=== PATIENT | male | born 1995 | race Caucasian/White ===

== ENCOUNTER → 2019-09-02 12:56 | Outpatient (CLI) | payer OTHER, SELFPAY | PROVIDERS: Visit Provider Physician Assistant | DX: L02.91 Cutaneous abscess, unspecified (principal) | CPT/HCPCS: 87070; 87077; 87205 ==

== ENCOUNTER 2020-06-13 19:34 | Emergency (ER) | payer OTHER, SELFPAY ==
[2020-06-13] VITALS (7 sets, daily range): BP systolic 119–135; BP diastolic 56–75; PULSE 88–108; RESP 16–20; TEMP 36.7–38.6; O2SAT 97–99
--- NOTE | 2020-06-13 19:48 | DI.RAD.S_ITS ---
PROCEDURE: XR CHEST 1V INDICATIONS: suspected sepsis TECHNIQUE: One view of the chest was acquired. COMPARISON: None. FINDINGS: Surgical changes and devices: None. Lungs and pleura: Lungs are clear. No pleural effusions or pneumothorax. Mediastinum: Mediastinal contours appear normal. Heart size is normal. Bones and chest wall: No suspicious bony lesions. Overlying soft tissues appear unremarkable. IMPRESSION: No acute pulmonary process. Dictated by: Sherley Campbell M.D. on 06/13/2020 at 20:59 Approved by: Sherley Campbell M.D. on 06/13/2020 at 20:59
[2020-06-13 20:18] LABS: Add Manual Diff / Slide Review NO; Basophils Absolute Auto 100 /uL (0-100); Basophils Percent Auto 0.4 % (0-2); Eosinophils Absolute Auto 100 /uL (0-450); Eosinophils Percent Auto 0.4 % (2-4); Hematocrit 46.8 % (41-53); Lymphocytes Absolute Auto 1100 /uL (1100-4500); Lymphocytes Percent Auto 7.5 % (25-40); Mean Corpuscular HGB Conc 34.2 % (30-36); Mean Corpuscular Hemoglobin 30.6 PG (26-34); Mean Corpuscular Volume 89.6 fL (80-100); Monocytes Absolute Auto 1200 /uL (0-900); Monocytes Percent Auto 7.9 % (3-14); Neutrophils Absolute Auto 12700 /uL (1500-7000); Neutrophils Percent Auto 83.8 % (50-75); Platelet Count 220 X10^3/uL (150-400); Red Blood Cell Count 5.22 X10^6/uL (4.5-5.9); Red Cell Distribution Width 13.6 % (11.6-14.8); White Blood Cell Count 15.1 X10^3/uL (4.5-11.0)
[2020-06-13] MEDS: ACETAMINOPHEN 325 MG TABLET 975 MG PO (20:23)
[2020-06-13] MEDS: SODIUM CHLORIDE 0.9% 1,000 ML 1000 ML IV (20:24)
[2020-06-13] MEDS: IBUPROFEN 400 MG TABLET 800 MG PO (20:24)
[2020-06-13 20:27] LABS: INR 1.3 (0.9-1.3); Prothrombin Time 15.1 SECONDS (10.1-12.7)
[2020-06-13 20:29] LABS: PTT Partial Thromboplastin Tim 33 SECONDS (26.4-36.2)
[2020-06-13 20:37] LABS: Alanine Aminotransferase 43 IU/L (<50); Albumin 4.7 g/dL (3.5-5.0); Albumin Globulin Ratio 1.7 (1.0-2.8); Alkaline Phosphatase 73 U/L (38-126); Aspartate Aminotransferase 40 IU/L (17-59); BUN Creatinine Ratio 14.6 (6-22); Bilirubin Total 0.6 mg/dL (0.2-1.3); Blood Urea Nitrogen 15 mg/dL (9-20); Calcium 9.5 mg/dL (8.4-10.2); Carbon Dioxide 27 mmol/L (22-32); Chloride 97 mmol/L (98-107); Estimated Glomerular Filt Rate > 60.0 mL/min (>60); Globulin 2.7 g/dL (1.7-4.1); Glucose 93 mg/dL (70-100); HEMOLYSIS 19 (0-50); Lactate (Lactic Acid) 0.8 mmol/L (0.7-2.1); Lipase 54 U/L (23-300); Potassium 3.7 mmol/L (3.4-5.1); Sodium 135 mmol/L (137-145); Total Protein 7.4 g/dL (6.3-8.2)
[2020-06-13 20:57] LABS: Procalcitonin < 0.05 ng/mL (<0.5)
--- NOTE | 2020-06-13 21:34 | ED_ITS ---
HPI - Fever General Chief Complaint: Fever Stated Complaint: Sore Throat,Fever,Body Aches,SOB Time Seen by Provider: 06/13/20 19:40 Source: patient Mode of arrival: Ambulatory Limitations: no limitations History of Present Illness HPI Narrative: 24-year-old male nonsmoker with noncontributory medical history presents with a day or to of sore throat with difficulty swallowing, fever, shaking chills, body aches. He denies headache, runny nose. Denies any chest pain or shortness of breath. He denies any abdominal pain nor nausea or vomiting. He has no dysuria, frequency or urgency. He denies any diarrhea. 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 and is constantly in contact with persons that would be considered high risk for COVID-19 Related Data Previous Rx's Medication Instructions Recorded mupirocin 2 % topical ointment 1 applic TOP BID #22 gram 09/02/19 Allergies Allergy/AdvReac Type Severity Reaction Status Date / Time No Known Drug Allergies Allergy Unverified 09/02/19 11:46 Review of Systems Constitutional Constitutional: Reports chills, Denies fatigue, Reports fever(s), Denies frequent falls, Denies lethargy and Denies weakness Eyes Eyes: Denies change in vision, Denies eye discharge, Denies irritation and Denies loss of vision ENT Ears, Nose, Mouth, and Throat: Denies change in voice, Denies dizziness, Denies neck pain, Reports sore throat and Denies throat swelling Cardiovascular Cardiovascular: Denies chest pain, Denies irregular heart rhythm, Denies lightheadedness, Denies palpitations, Denies dyspnea, Denies dyspnea on exertion and Denies orthopnea Respiratory Respiratory: Denies cough, Denies dyspnea, Denies dyspnea on exertion and Denies wheezing Gastrointestinal Gastrointestinal: Denies abdominal pain, Denies change in bowel habits, Denies diarrhea, Denies nausea and Denies vomiting Musculoskeletal Musculoskeletal: Denies neck pain and Denies numbness Integumentary/Breasts Skin/Breast: Denies pruritus, Denies erythema, Denies rash and Denies wounds Neurologic Neurologic: Denies behavioral changes, Denies confusion, Denies dizziness, Denies frequent falls, Denies loss of vision, Denies numbness and Denies w eakness Psychiatric Psychiatric: Denies anxiety, Denies behavioral changes, Denies confusion, Denies depression, Denies homicidal ideation and Denies suicidal ideation Endocrine Endocrine: Denies fatigue, Denies flushing and Denies palpitations Hematologic/Lymphatic Hematologic/Lymphatic: Denies easy bruising Allergic/Immunologic Allergic/Immunologic: Denies urticaria, Denies throat swelling and Denies wheezing Patient History Social History Smoking Status: Never smoker Smoking Status: Never smoker Exam Narrative Exam Narrative: GENERAL: [24] year old patient appears stated age. Well-n ourished, well-developed patient, in mild distress. HEAD: Atraumatic. Normocephalic. EYES: Pupils equal round and reactive. Extraocular motions intact. No scleral icterus. No injection or drainage. ENT: Nose without bleeding, purulent drainage. Posterior pharyngeal erythema with tonsillar swelling and exudate, no sign of abscess. NECK: Trachea midline. Non tender CARDIOVASCULAR: Regular rate and rhythm without murmurs, gallops, or rubs. RESPIRATORY: Clear to auscultation. Breath sounds equal bilaterally. No wheezes, rales, or rhonchi. GASTROINTESTINAL: Abdomen soft, non-tender, nondistended. EXTREMITIES: No edema or joint tenderness. BACK: Nontender without deformity or crepitance. No flank tenderness. NEURO: AOx3. SKIN: No rash or erythema of visible areas Initial Vital Signs Initial Vital Signs: Vital Signs Temperature 101.5 F H 06/13/20 19:44 Pulse Rate 108 H 06/13/20 19:44 Respiratory Rate 06/13/20 19:44 Blood Pressure 135/75 06/13/20 19:44 Pulse Oximetry 99 06/13/20 19:44 Course Orders Ordered: ED Orders 06/13/20 19:48 XR chest 1V Stat RT Consult Eval and Treat Now 06/13/20 20:09 Complete Blood Count AUTO DIFF Stat Comprehensive Metabolic Panel Stat Lactate (Lactic Acid) Stat Lipase Stat Partial Thromboplastin Time Stat Procalcitonin Stat Prothrombin Time INR Stat Throat Culture Stat 06/13/20 20:17 EKG-12 Lead Stat 06/13/20 20:30 Blood Culture Stat Discontinued Medications Acetaminophen (Tylenol) 975 mg PO NOW ONE Stop: 06/13/20 20:18 Last Admin: 06/13/20 20:23 Dose: 975 mg Documented by: DEB Sodium Chloride (Normal Saline 0.9%) 1,000 mls @ 1,000 mls/hr IV BOLUS ONE Stop: 06/13/20 20:47 Last Infusion: 06/13/20 21:31 Dose: 0 mls/hr Documented by: Admin: 06/13/20 20:24 Dose: 1,000 mls/hr Documented by: DEB Ibuprofen (Advil) 800 mg PO NOW ONE Stop: 06/13/20 20:18 Last Admin: 06/13/20 20:24 Dose: 800 mg Documented by: DEB Penicillin G Benzathine (Bicillin L-A) 1,200,000 unit IM NOW ONE Stop: 06/13/20 22:13 Last Admin: 06/13/20 22:27 Dose: 1,200,000 unit Documented by: GUSTAVO Vital Signs Vital signs: Vital Signs - 8 hr 06/13/20 19:44 06/13/20 20:16 06/13/20 20:23 Temperature 101.5 F H 101.4 F H Pulse Rate 108 H 101 H Respiratory Rate 20 Blood Pressure 135/75 Pulse Oximetry 99 97 06/13/20 20:24 06/13/20 20:30 06/13/20 21:31 Temperature 101.4 F H 99.0 F Pulse Rate 99 H Respiratory Rate Blood Pressure 123/59 L Pulse Oximetry 97 06/13/20 22:58 Temperature 98.1 F Pulse Rate 88 Respiratory Rate 16 Blood Pressure 119/56 L Pulse Oximetry 99 MDM - Fever Lab Data Result diagrams: 06/13/20 20:09 06/13/20 20:09 Labs: Lab Results 06/13/20 06/13/20 06/13/20 Range/Units 20:09 20:09 20:09 WBC 15.1 H (4.5-11.0) X10^3/uL RBC 5.22 (4.5-5.9) X10^6/uL Hgb 16.0 (13.5-17.5) g/dL Hct 46.8 (41-53) % MCV 89.6 (80-100) fL MCH 30.6 (26-34) PG MCHC 34.2 (30-36) % RDW 13.6 (11.6-14.8) % Plt Count 220 (150-400) X10^3/uL Neut % (Auto) 83.8 H (50-75) % Lymph % (Auto) 7.5 L (25-40) % Mcleod % (Auto) 7.9 (3-14) % Eos % (Auto) 0.4 L (2-4) % Baso % (Auto) 0.4 (0-2) % Neut # (Auto) 91180 H (1878-1568) /uL Lymph # (Auto) 1100 (8986-6817) /uL Mcleod # (Auto) 1200 H (0-900) /uL Eos # (Auto) 100 (0-450) /uL Baso # (Auto) 100 (0-100) /uL PT 15.1 H (10.1-12.7) SECONDS INR 1.3 (0.9-1.3) APTT 33 (26.4-36.2) SECONDS Sodium (137-145) mmol/L Potassium (3.4-5.1) mmol/L Chloride (98-107) mmol/L Carbon Dioxide (22-32) mmol/L BUN (9-20) mg/dL Creatinine (0.66-1.25) mg/dL Estimated GFR (>60) mL/min BUN/Creatinine Ratio (6-22) Glucose (70-100) mg/dL Lactate (0.7-2.1) mmol/L Calcium (8.4-10.2) mg/dL Total Bilirubin (0.2-1.3) mg/dL AST (17-59) IU/L ALT (<50) IU/L Alkaline Phosphatase (38-126) U/L Total Protein (6.3-8.2) g/dL Albumin (3.5-5.0) g/dL Globulin (1.7-4.1) g/dL Albumin/Globulin Ratio (1.0-2.8) Lipase (23-300) U/L Procalcitonin < 0.05 (<0.5) ng/mL COVID-19 PCR (Negative) 06/13/20 06/13/20 06/13/20 Range/Units 20:09 20:09 20:09 WBC (4.5-11.0) X10^3/uL RBC (4.5-5.9) X10^6/uL Hgb (13.5-17.5) g/dL Hct (41-53) % MCV (80-100) fL MCH (26-34) PG MCHC (30-36) % RDW (11.6-14.8) % Plt Count (150-400) X10^3/uL Neut % (Auto) (50-75) % Lymph % (Auto) (25-40) % Mcleod % (Auto) (3-14) % Eos % (Auto) (2-4) % Baso % (Auto) (0-2) % Neut # (Auto) (7021-1791) /uL Lymph # (Auto) (5060-0666) /uL Mcleod # (Auto) (0-900) /uL Eos # (Auto) (0-450) /uL Baso # (Auto) (0-100) /uL PT (10.1-12.7) SECONDS INR (0.9-1.3) APTT (26.4-36.2) SECONDS Sodium 135 L (137-145) mmol/L Potassium 3.7 (3.4-5.1) mmol/L Chloride 97 L (98-107) mmol/L Carbon Dioxide 27 (22-32) mmol/L BUN 15 (9-20) mg/dL Creatinine 1.03 (0.66-1.25) mg/dL Estimated GFR > 60.0 (>60) mL/min BUN/Creatinine Ratio 14.6 (6-22) Glucose 93 (70-100) mg/dL Lactate 0.8 (0.7-2.1) mmol/L Calcium 9.5 (8.4-10.2) mg/dL Total Bilirubin 0.6 (0.2-1.3) mg/dL AST 40 (17-59) IU/L ALT 43 (<50) IU/L Alkaline Phosphatase 73 (38-126) U/L Total Protein 7.4 (6.3-8.2) g/dL Albumin 4.7 (3.5-5.0) g/dL Globulin 2.7 (1.7-4.1) g/dL Albumin/Globulin Ratio 1.7 (1.0-2.8) Lipase 54 (23-300) U/L Procalcitonin (<0.5) ng/mL COVID-19 PCR Negative (Negative) Point of Care Testing Rapid Strep A Negative MDM Narrative Medical decision making narrative: Patient with fever, difficulty swallowing, tonsillar swelling, exudate, elevated white blood cell count. Rapid strep is negative, however given relatively isolated symptoms and the appearance consistent with strep patient has a high likelihood of a streptococcal pharyngitis other than group a beta-hemolytic strep which is tested by our rapid test. Furthermore, patient has a history of atypical streptococcal pharyngitis that did not show up on the rapid only to be called back after a positive throat culture a few days later. We did discuss this and after COVIDt swab came back negative we elected to treat here in the department rather than wait for the culture Discharge Plan Departure Patient Disposition: Home Clinical Impression: Pharyngitis, acute Qualifiers: Pharyngitis/tonsillitis etiology: unspecified etiology Qualified Code(s): J02.9 - Acute pharyngitis, unspecified Discharge Date/Time: 06/13/20 23:01 Instructions: DI for Strep Throat Activity Restrictions/Additional Instructions: *You have been diagnosed with [acute pharyngitis, suspect streptococcal] *What to do: *Take medications as directed *Follow up with your primary care provider in 2-3 days, call for an appointment. Let them know you were seen in the Emergency Department and that we ask that you be seen in follow up *Return to ER if you should have any new, worsening or concerning symptoms Prescriptions: No Action mupirocin 2 % ointment 1 applic TOP BID Qty: 22 RF: 0
[2020-06-13 21:41] LABS: COVID19 -Nasal RAPID Negative (Negative)
[2020-06-13] MEDS: PENICILLIN G BENZATHINE 1,200,000 UNIT/2 ML SYRINGE 1200000 UNIT IM (22:27)
== END 2020-06-13 23:01 | disposition home or self-care (01) ==
PROVIDERS: Emergency Provider Emergency Medicine
DX: J02.9 Acute pharyngitis, unspecified (principal); R50.9 Fever, unspecified; D72.829 Elevated white blood cell count, unspecified; Z03.818 Encounter for observation for suspected exposure to other biological agents ruled out
CPT/HCPCS: 36415; 71045; 80053; 83605; 83690; 84145; 85025; 85610; 85730; 87040; 87070; 87077; 87147; 87635; 87880; 93005; 96360; 96372; 99284; 99285; J0561

== ENCOUNTER 2020-12-19 11:20 | Emergency (ER) | payer OTHER, SELFPAY ==
[2020-12-19 11:29] VITALS: BP 153/71; PULSE 117; RESP 18; TEMP 37; O2SAT 100; BMI 31.4
[2020-12-19] MEDS: DEXAMETHASONE 10 MG/ML VIAL PO (11:58)
--- NOTE | 2020-12-19 12:33 | ED.URI ---
HPI - URI/Sore Throat <ANDREW Peace - Last Filed: 12/19/20 13:23> General Chief Complaint: Upper Respiratory Symptoms Stated Complaint: Sore throat 2 weeks,spitting blood Time Seen by Provider: 12/19/20 11:22 Source: patient Mode of arrival: Ambulatory Limitations: no limitations History of Present Illness HPI Narrative: This is a 24 year male, nonsmoker, past medical history significant for bipolar and frequent throat infection presents to ED with chief complain of 2 week duration of moderate sore throat. Patient today noticed metallic taste in the back of his throat and when he spit it out notice blood spots and concerned so came in to ED for an evaluation. Patient denies his on blood thinner. Patient denies chest pain, breathing difficulty, hemoptysis, known exposure to COVID, abdominal pain, nausea or vomiting, near syncope. He denies runny nose, nose bleed. 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 He has been taking Motrin to treat his discomfort and last Motrin taken about 5 hours ago. Patient reports pain as 2/10 at this time. He states drinks about a gallon of water daily and denies difficulty hydrating himself. Patient denies taking high dose of caffeine, feeling anxious, in significant pain. Related Data Previous Rx's Medication Instructions Recorded mupirocin 2 % topical ointment 1 applic TOP BID #22 gram 09/02/19 penicillin V potassium 500 mg PO BID 10 Days #20 tab 12/19/20 Allergies Allergy/AdvReac Type Severity Reaction Status Date / Time No Known Drug Allergies Allergy Unverified 09/02/19 11:46 Review of Systems <ANDREW Peace - Last Filed: 12/19/20 13:23> Review of Systems Narrative: General: See HPI HEENT: Denies sinus pain, ear pain, (+) sore throat, difficulty swallowing, dizziness. Respiratory: Denies dyspnea, cough, wheezing, hemoptysis, sputum. Cardiovascular: Denies chest pain, palpitations, orthopnea, edema. Gastrointestinal: Denies nausea, vomiting, abdominal pain, diarrhea, constipation, melena. : Denies dysuria, frequency, incontinence, hematuria, urinary retention. Musculoskeletal: Denies weakness, joint pain or bony pain. Skin: Denies rash, skin lesions, or other. Neurologic: Denies weakness, headache, numbness, change in speech, confusion, seizures, incoordination. Psychiatric: No concerning psychosocial issues. 12-point review of systems is negative except for those stated above. Patient History <ANDREW Peace - Last Filed: 12/19/20 13:23> Medical History Bipolar 1 disorder Social History Smoking Status: Never smoker Smoking Status: Never smoker Substance Use Type: marijuana Exam <[facility] WeaverP - Last Filed: 12/19/20 13:23> Narrative Exam Narrative: GEN: Alert, oriented x 3, well appearing and nourished, and in no acute distress. Head: Normal cephalic, atraumatic. No scalp or temporal tenderness, palpable mass or rash. EYES: Pupils are equal, round, and reactive to light and accommodation. Extraocular muscles are intact bilaterally. There is no subconjunctival hemorrhage, exudate and sclera non-icteric. ENT: Bilateral auditory canals and tympanic membranes clear. Hearing grossly intact. Nose without bleeding, purulent discharge or deviation. Facial sinuses nontender to palpate. Mucous membrane moist, no mucosal lesion. Throat with erythema, tonsillar hypertrophy and a few exudate. Uvula in midline, airway patent. Neck: Trachea in midline. No JVD, non-tender without lymphadenopathy. No masses or thyroid megaly. Supple, non-tender and no meningeal signs. CARDIAC: Normal regular rate and rhythm without murmurs, gallops, or rubs. No chest wall tenderness. No peripheral edema, cyanosis or pallor. Capillary refill is less than 2 seconds. RESPIRATORY: Lungs are clear to auscultate bilaterally. No cough, wheezes, rales, or rhonchi. No stridor, respiratory distress, increase work of breathing, or accessary muscle used. ABD: Abdomen soft, nontender and non-distended. No guarding or rebound tenderness to palpate. Bowel sounds are normal in all 4 quadrants. There is no palpable masses or organomegaly. EXT: Full painless ROM of all extremities with no loss of sensation, strength, effusion or edema. SKIN: Warm, dry, normal color for patient. No erythema, lesions or rash over visible areas. BACK: Nontender without deformity or crepitance. No flank tenderness. NEUROLOGICAL: Alert and oriented to place, time and person. Sensation and motor function intact bilaterally. No facial droops, dysphasia. PSYCHIATRIC: Good judgement and reason, without hallucinations, abnormal affect or abnormal behaviors during the examination. Patient is not suicidal. Initial Vital Signs Initial Vital Signs: Vital Signs Temperature 98.6 F 12/19/20 11:29 Pulse Rate 117 H 12/19/20 11:29 Respiratory Rate 18 12/19/20 11:29 Blood Pressure 153/71 H 12/19/20 11:29 Pulse Oximetry 100 12/19/20 11:29 <Daisy Crabtree DO - Last Filed: 12/19/20 19:48> Initial Vital Signs Initial Vital Signs: Vital Signs Temperature 98.6 F 12/19/20 11:29 Pulse Rate 117 H 12/19/20 11:29 Respiratory Rate 18 12/19/20 11:29 Blood Pressure 153/71 H 12/19/20 11:29 Pulse Oximetry 100 12/19/20 11:29 Scores <ANDREW Peace - Last Filed: 12/19/20 13:23> GCS Koby coma scale eye opening: Spontaneous Koby coma scale verbal response: Orientated [place] coma scale motor response: Obey commands [place] coma scale total score: 15 qSOFA Altered Mental Status (GCS <15): No Respiratory rate greater than/equal to 22: No Systolic blood pressure less than or equal to 100: No qSOFA Total: 0 0-1 Not High Risk 1-3 High risk Course <ANDREW Peace - Last Filed: 12/19/20 13:23> Orders Ordered: ED Orders 12/19/20 11:30 Throat Culture Stat Discontinued Medications Dexamethasone (Dexamethasone 10 Mg/Ml Vial) 10 mg PO NOW ONE Stop: 12/19/20 11:37 Last Admin: 12/19/20 11:58 Dose: 10 mg Documented by: JUAN PABLO Vital Signs Vital signs: Vital Signs - 8 hr 12/19/20 12:35 12/19/20 13:07 Pulse Rate 94 H 99 H Respiratory Rate 16 Blood Pressure 135/68 137/66 Pulse Oximetry 97 97 <Daisy Crabtree DO - Last Filed: 12/19/20 19:48> Orders Ordered: ED Orders 12/19/20 11:30 Throat Culture Stat Discontinued Medications Dexamethasone (Dexamethasone 10 Mg/Ml Vial) 10 mg PO NOW ONE Stop: 12/19/20 11:37 Last Admin: 12/19/20 11:58 Dose: 10 mg Documented by: JUAN PABLO Vital Signs Vital signs: Vital Signs - 8 hr 12/19/20 12:35 12/19/20 13:07 Pulse Rate 94 H 99 H Respiratory Rate 16 Blood Pressure 135/68 137/66 Pulse Oximetry 97 97 MDM - URI/Sore Throat <Leobardo OcampoKristinaDougANDREW villa - Last Filed: 12/19/20 13:23> Differential Diagnosis Differential diagnosis: Likely upper respiratory infection, pharyngitis and other (Strep a infection) Medical Records Attestation: I reviewed the patient's medical records. Lab Data Attestation: I reviewed the patient's lab results. Labs: Point of Care Testing Rapid Strep A Negative MDM Narrative Medical decision making narrative: This is a 25-year-old male who has frequent throat infection presents to ED with 2 week duration of sore throat. Today he saw bright red blood when he spitted out after having a metallic taste in the mouth. Throat exam erythematous, edematous, with few action date in right tonsillar region. POC Strep test was negative. Back up throat culture is pending. Patient medicated with dexamethasone for swelling and discomfort. Will treat patient with antibiotic medication for atypical bacterial pharyngitis preliminary given it has been going on for 2 weeks and with small exudates, hypertrophic tonsils. Patient is tachycardia in ED but patient does not appears to be toxic, has fever, in severe discomfort. Denies feeling anxious. Patient's heart rate decreased to 106 the lowest at rest during exam. Heart rate decreased to 94-99 at rest and after some hydration. Patient is not toxic appearing. Patient discharged to home with penicillin VK 500 mg b.i.d. dose for 10 day course with strict return precautions. He verbalized understanding and agreement with treatment plan. <Daisy Crabtree DO - Last Filed: 12/19/20 19:48> Lab Data Labs: Point of Care Testing Rapid Strep A Negative Discharge Plan Departure Patient Disposition: Home Clinical Impression: Pharyngitis Qualifiers: Pharyngitis/tonsillitis etiology: other specified organisms Qualified Code(s): J02.8 - Acute pharyngitis due to other specified organisms Instructions: DI for Pharyngitis/Tonsillopharyngitis -- Adult Activity Restrictions/Additional Instructions: You have been diagnosed with [pharyngitis. POC strep test was negative and formal throat culture is pending. You will receive a phone call if require different antibiotic medication coverage.]. What to do: *Take your medications as directed. Please take [id number] Tylenol and or Motrin as needed for discomfort. Steroids will last for 3 days for sore throat and swelling that was given today in ED. start taking antibiotic medication Penicillin-Vk twice a day for next 10 days. Please use warm salt water gargle for comfort. Hydrate well. Medication have been transmitted to [facility] in [place]. *Follow up with your primary care provider in 2-3 days, call for an appointment. Let them know you were seen in the ED and that we asked you to be seen in follow up. *Return to ED if you have any new, worsening, or concerning symptoms, such as [worsening pain, high fever, unable to tolerate fluids, difficulty breathing/swallowing, chest pain, or any acute concerns]. Prescriptions: New penicillin V potassium 500 mg tablet 500 mg PO BID 10 Days Qty: 20 RF: 0 No Action mupirocin 2 % ointment 1 applic TOP BID Qty: 22 RF: 0 Referrals: [facility] [Outside] <Daisy Crabtree DO - Last Filed: 12/19/20 19:48> [facility] ED Attending Annalisa Attestation: I was immediately available in the department for consultation. Documentation has been reviewed. I agree with assessment and plan.
[2020-12-19 12:35] VITALS: BP 135/68; PULSE 94; RESP 16; O2SAT 97
[2020-12-19 13:07] VITALS: BP 137/66; PULSE 99; O2SAT 97
== END 2020-12-19 13:28 | disposition home or self-care (01) ==
PROVIDERS: Emergency Provider Nurse Practitioner Family
DX: J02.8 Acute pharyngitis due to other specified organisms (principal); R04.2 Hemoptysis; F31.9 Bipolar disorder, unspecified
CPT/HCPCS: 87070; 87077; 87147; 87880; 99281; 99283; J1100

== ENCOUNTER 2022-09-14 12:48 | Emergency (ER) | payer OTHER, SELFPAY ==
[2022-09-14 13:06] VITALS: BP 128/79; PULSE 80; RESP 16; TEMP 36.3; O2SAT 94; BMI 29.5
[2022-09-14] MEDS: TET,DIPH,PERTUSS(ACELL),VAC/PF 0.5 ML SYRINGE IM (13:31)
--- NOTE | 2022-09-14 13:43 | DI.RAD.S_ITS ---
PROCEDURE: XR FINGER LT MIN 2V INDICATIONS: Cut index finger at PIP joint TECHNIQUE: AP hand, 2 views of the 2nd finger(s) acquired. COMPARISON: None. FINDINGS: Bones: No fractures or dislocations. No suspicious bony lesions. Soft tissues: There is slight swelling of the 2nd digit mainly over the PIP joint. Underlying the indicated area of cut, there is no foreign body or suspicious soft tissue gas. IMPRESSION: 1. Mild swelling of the 2nd digit. 2. No evidence of foreign body or fracture underlying the indicated area of injury. Dictated by: Whit Treviño M.D. on 09/14/2022 at 13:26 Approved by: Whit Treviño M.D. on 09/14/2022 at 13:28
--- NOTE | 2022-09-14 13:48 | ED.WOUNDLAC ---
HPI - Wound/Laceration <Derick Landry PA-C - Last Filed: 09/14/22 21:10> General Chief Complaint: Wound/Laceration Stated Complaint: L index finger lac, cut on knife Time Seen by Provider: 09/14/22 13:32 Source: patient Mode of arrival: Family Vehicle History of Present Illness HPI narrative: Patient is a 27-year-old male presents to the emergency room today with complaint of a cut to his left index finger. States he is cut his left index finger about an hour ago while he was using his personal knife to cut some cardboard. States he had minimal bleeding to the area and reported to the emergency room to have it sutured. Denies any other concerns. Related Data Previous Rx's Medication Instructions Recorded mupirocin 2 % topical ointment 1 applic topical BID #22 grams 09/02/19 Allergies Allergy/AdvReac Type Severity Reaction Status Date / Time No Known Drug Allergies Allergy Verified 09/14/22 13:06 Review of Systems <CYDNEY Russ Last Filed: 09/14/22 21:10> Review of Systems Narrative: R.O.S.: General: No fever, chills or fatigue. Cardiovascular: No chest pain or palpitations Respiratory: No S.O.B. HEENT: No congestion, ear pain, rhinorrhea, sore throat or tinnitus Gastrointestinal: No nausea or vomiting : No urinary concerns Skin: Cut to index finger Musculoskeletal: No pain in muscles or joints, no limitation of range of motion, no paresthesia or numbness. ?? Neurological: Awake, alert and in not apparent distress. No Headaches, changes in vision or other related neurological concerns. Patient History <Derick Landry PA-C - Last Filed: 09/14/22 21:10> Medical History Bipolar 1 disorder Social History Smoking Status: Never smoker Smoking Status: Never smoker Substance Use Type: marijuana Exam <CYDNEY Russ Last Filed: 09/14/22 21:10> Narrative Exam Narrative: Physical Exam: ? General: normal appearance, well developed, well nourished, alert, and awake. Not in acute distress. ? Head: Normocephalic, no lesions. Chest: Lungs CTAB, no rales, rhonchi or wheezes. ?? Heart: RRR, no murmurs, rubs or gallops. Eyes: PERRLA, EOM's full, conjunctivae clear. ? Neuro: Physiological, no localizing findings, CN3-12 intact. ?? Extremities: Warm, well perfused, FROM, no deformities, no edema. ?? Left hand: Patient has approximately 1.5 cm laceration on the lateral index finger proximal to the thumb. The area has very minimal bleeding and moderate erythema this time. Patient also has good range of motion of the index finger for flexion and extension. Finger also has intact sensation to touch and good capillary refill. PSYCHIATRIC: The mood is good, no blunted affect. Speech is clear. Thought process is linear, thought content is appropriate. The voice is without significant inflection. Gastrointestinal: Soft; NT; ND; Pos BS with Neg. rebound tenderness. No scars or major deformities noted on Visual Inspection. Initial Vital Signs Initial Vital Signs: Vital Signs Temperature 97.3 F L 09/14/22 13:06 Pulse Rate 80 09/14/22 13:06 Respiratory Rate 16 09/14/22 13:06 Blood Pressure 128/79 09/14/22 13:06 Pulse Oximetry 94 09/14/22 13:06 Oxygen Delivery Method 09/14/22 13:06 <Gunner Frias DO - Last Filed: 09/14/22 21:33> Initial Vital Signs Initial Vital Signs: Vital Signs Temperature 97.3 F L 09/14/22 13:06 Pulse Rate 80 09/14/22 13:06 Respiratory Rate 16 09/14/22 13:06 Blood Pressure 128/79 09/14/22 13:06 Pulse Oximetry 94 09/14/22 13:06 Oxygen Delivery Method 09/14/22 13:06 Procedures <CYDNEY Russ Last Filed: 09/14/22 21:10> Laceration Repair Laceration 1: Site: hand Side (If applicable): left Size (cm): 1.5 Description: linear Depth: simple, single layer Local Anesthetic: lidocaine 2% Skin layer closed with: nylon Skin layer suture size: 4-0 Number of sutures: 3 Technique: simple, interrupted Course <CYDNEY Russ Last Filed: 09/14/22 21:10> Orders Ordered: ED Orders 09/14/22 13:43 XR finger LT min 2V Stat Discontinued Medications Bacitracin (Bacitracin Oint 0.9 Gm Pckt) 1 applic TOP NOW ONE Stop: 09/14/22 15:47 Last Admin: 09/14/22 16:00 Dose: 1 applic Documented By: RL Diphtheria/Tetanus/Acell Pertussis (Tet,Diph,Pertuss(Acell),Vac/Pf 0.5 Ml Syringe) 0.5 ml IM .ONCE ONE Stop: 09/14/22 13:11 Last Admin: 09/14/22 13:31 Dose: 0.5 ml Documented By: RL Lidocaine HCl (Lidocaine 2% Inj Sdv) 5 ml INJ INTRA-OP ONE Stop: 09/14/22 15:13 Last Admin: 09/14/22 15:19 Dose: 5 ml Documented By: RL Neomycin/Polymyxin/Bacitracin (Neomycin/Polymyxin/Bacitra Ud Oint) 1 each TOP NOW ONE Stop: 09/14/22 15:45 Last Admin: 09/14/22 16:52 Dose: Not Given Documented By: FRANKLIN Vital Signs Vital signs: Vital Signs - 8 hr 09/14/22 15:57 Pulse Rate 83 Respiratory Rate 18 Blood Pressure 135/77 Pulse Oximetry 100 Oxygen Delivery Method Room Air <Gunner Frias DO - Last Filed: 09/14/22 21:33> Orders Ordered: ED Orders 09/14/22 13:43 XR finger LT min 2V Stat Discontinued Medications Bacitracin (Bacitracin Oint 0.9 Gm Pckt) 1 applic TOP NOW ONE Stop: 09/14/22 15:47 Last Admin: 09/14/22 16:00 Dose: 1 applic Documented By: RL Diphtheria/Tetanus/Acell Pertussis (Tet,Diph,Pertuss(Acell),Vac/Pf 0.5 Ml Syringe) 0.5 ml IM .ONCE ONE Stop: 09/14/22 13:11 Last Admin: 09/14/22 13:31 Dose: 0.5 ml Documented By: RL Lidocaine HCl (Lidocaine 2% Inj Sdv) 5 ml INJ INTRA-OP ONE Stop: 09/14/22 15:13 Last Admin: 09/14/22 15:19 Dose: 5 ml Documented By: RL Neomycin/Polymyxin/Bacitracin (Neomycin/Polymyxin/Bacitra Ud Oint) 1 each TOP NOW ONE Stop: 09/14/22 15:45 Last Admin: 09/14/22 16:52 Dose: Not Given Documented By: FRANKLIN Vital Signs Vital signs: Vital Signs - 8 hr 09/14/22 15:57 Pulse Rate 83 Respiratory Rate 18 Blood Pressure 135/77 Pulse Oximetry 100 Oxygen Delivery Method Room Air MDM - Wound/Laceration <Derick Landry PA-C - Last Filed: 09/14/22 21:10> Imaging Data Extremity x-ray #1: Radiologist's Impression: [address] [address] XRay Report Signed Patient: Hamilton Edwards MR#: [id number] : 1995 Acct:[id number] Age/Sex: 27 / M Date of Service: 09/14/22 Loc: ED Accession Number: [id number] ?? Procedure: XR finger LT min 2V Ordering Provider: Derick Landry P.A-C PROCEDURE:? XR FINGER LT MIN 2V ? INDICATIONS:? Cut index finger at PIP joint ? TECHNIQUE:? AP hand, 2 views of the 2nd finger(s) acquired.? ? COMPARISON:? None. ? FINDINGS:? ? Bones:? No fractures or dislocations.? No suspicious bony lesions.? ? Soft tissues:? There is slight swelling of the 2nd digit mainly over the PIP joint.? Underlying the indicated area of cut, there is no foreign body or suspicious soft tissue gas. ? IMPRESSION:? ? 1. Mild swelling of the 2nd digit. ? 2. No evidence of foreign body or fracture underlying the indicated area of injury.? ? ? Dictated by: Whit Treviño M.D. on 09/14/2022 at 13:26 ? ? Approved by: Whit Treviño M.D. on 09/14/2022 at 13:28 ? [facility] Narrative Medical decision making narrative: Patient presents to the emergency room complaint of laceration to his left index finger. States he was cutting a box with his personal night. Tetanus prophylaxis was ordered and X-ray was ordered to rule out any foreign body or bony fragments. Three sutures used to close laceration. Discharge Plan Departure Patient Disposition: Home Clinical Impression: Laceration Instructions: DI for Laceration Repair Activity Restrictions/Additional Instructions: *You have been diagnosed with laceration repair to your left index finger. Three sutures were used to repair left index finger. Dressing was applied and you were given instructions on care. Please follow instructions for care and please avoid allowing any foreign body or excessive moisture to the sutured area. Also suggested return to the emergency room in 7 days for suture removal. Also please return to the emergency room if any emergent concerns arise. [ ] *What to do: *Please continue to take your regular medications as directed. [ ] New medication prescriptions sent to your pharmacy: [ ] [ ] New medication written as a paper prescription [x] No new medications given *Please follow up with your primary care provider in 2-3 days, call for an appointment. Let them know you were seen in the Emergency Department and that we ask that you be seen in follow up. We will electronically transmit a record of today's note if your PCP is in our system *If you do not have a primary care provider please contact the [facility] Resource line at [phone]. They will ask some questions about your medical history and help get you set up with a doctor in the community. *Return to Emergency Department if you should have any new, worsening or concerning symptoms, such as [fever greater than 101 F, shaking chills, worsening pain, persistent vomiting or other bothersome symptoms] Prescriptions: No Action mupirocin 2 % ointment 1 applic TOP BID Qty: 22 0RF Referrals: Miscellaneous,Doctor, [Primary Care Provider] - Visit Report Forms: Patient Portal/API <Gunner Frias, DO - Last Filed: 09/14/22 21:33> [facility]: Dr Frias Co-Sign Statement: I was available for consultation during this patient's emergency department visit. This chart is signed by myself for administrative purposes only. I did not have direct contact with this patient during this visit. They were seen independently by the APC.
[2022-09-14] MEDS: LIDOCAINE 2% INJ SDV 5 ML INJ (15:19)
[2022-09-14 15:57] VITALS: BP 135/77; PULSE 83; RESP 18; O2SAT 100
[2022-09-14] MEDS: BACITRACIN OINT 0.9 GM PCKT 1 APPLIC TOP (16:00)
== END 2022-09-14 16:01 | disposition home or self-care (01) ==
PROVIDERS: Emergency Provider Physician Assistant
DX: S61.211A Laceration without foreign body of left index finger without damage to nail, initial encounter (principal); W26.0XXA Contact with knife, initial encounter; Z23 Encounter for immunization
CPT/HCPCS: 12001; 73140; 90471; 99283; 99284; 90715